=== PATIENT | female | born 1930 | race Caucasian/White ===

== ENCOUNTER 2019-07-18 11:28 | Emergency (ER) | payer MEDICARE ==
[~2019-07-18] VITALS: Ht 165.1 cm; Wt 80.5 kg
[~2019-07-18 11:28] MED LIST: ACET650S13 RC; ASPI-1265 PO; CALC1TAB PO; CLON-528 PO; COU1T PO; ESTR0.3T3 PO; FAMO20TA8 PO; FURO40TA4 PO; GABA100C PO; KEP500T PO; LOPE2TAB23 PO; METO-539 PO; MULT-227 PO; NYST1POW5; PARO10TA85 PO; PRAV80TA3 PO
[2019-07-18] MEDS ORDERED: mag hydrox/Alum hydrox/simeth 30ml oral suspension PO ONE (11:55)
[2019-07-18] MEDS ORDERED: pantoprazole 40 MG vial IV ONE (11:55)
[2019-07-18] MEDS ORDERED: normal saline 1000ml 1,000 ML IV ONE (11:55)
[2019-07-18 12:03] LABS: BASOPHILS % (AUTO) 0.8 % (0-1); EOSINOPHILS % (AUTO) 0.2 % (0-6); HEMATOCRIT 44.2 % (35.0-45.0); HEMOGLOBIN 14.6 g/dl (12.0-16.0); LYMPHOCYTES % (AUTO) 33.8 % (21-51); MEAN CORPUSCULAR HEMOGLOBIN 28.7 PG (27.0-31.0); MEAN CORPUSCULAR HGB CONC 33.1 g/dL (33.0-36.5); MEAN CORPUSCULAR VOLUME 86.7 FL (78-98); MEAN PLATELET VOLUME 9.4 FL (7.4-10.4); MONOCYTES # (AUTO) 0.5 X10'3 (0-0.9); MONOCYTES % (AUTO) 7.7 % (2-12); NEUTROPHILS # (AUTO) 3.4 X10'3 (1.8-7.7); NEUTROPHILS % (AUTO) 57.5 % (42-75); PLATELET COUNT 178 X10'3 (140-440); RED CELL DISTRIBUTION WIDTH 15.1 % (11.5-14.5); WHITE BLOOD COUNT 5.9 X10'3 (4.5-11.0)
[2019-07-18 12:19] LABS: ALANINE AMINOTRANSFERASE 35 U/L (12-78); ALBUMIN 2.8 G/DL (3.4-5.0); ALBUMIN/GLOBULIN RATIO 0.7 (1.1-1.5); ALKALINE PHOSPHATASE 112 IU/L (46-116); ANION GAP 11 (8-16); ASPARTATE AMINO TRANSFERASE 63 U/L (10-37); BILIRUBIN,TOTAL 1.9 MG/DL (0.1-1.0); BLOOD UREA NITROGEN 32 MG/DL (7-18); BUN/CREATININE RATIO 19.6 (6.6-38.0); CALCIUM 9.3 MG/DL (8.5-10.1); CHLORIDE 97 MMOL/L (99-107); CREATININE 1.63 MG/DL (0.40-0.90); GLUCOSE 84 MG/DL (70-104); LIPASE 69 U/L (73-393); MAGNESIUM 2.1 MG/DL (1.5-2.4); SODIUM 133 MMOL/L (135-145); TOTAL CARBON DIOXIDE 24.8 MMOL/L (24-32); TOTAL PROTEIN 6.8 G/DL (6.4-8.2); eGFR 30 ML/MIN
[2019-07-18] MEDS ORDERED: iohexol 350MG/ML 100ml bottle IV ONE (13:27)
[2019-07-18] MEDS ORDERED: PANT-47 PO (15:20)
[2019-07-18] MEDS ORDERED: ONDA4TAB6 PO (15:20)
[2019-07-18 15:58] VITALS: BP 126/92
== END 2019-07-18 16:00 | disposition home or self-care (01) ==
LOC: ER 11:28
DX: R11.2 Nausea with vomiting, unspecified (principal); I38 Endocarditis, valve unspecified; Z86.69 Personal history of other diseases of the nervous system and sense organs; I10 Essential (primary) hypertension; Z86.718 Personal history of other venous thrombosis and embolism; Z91.011 Allergy to milk products; Z88.8 Allergy status to other drugs, medicaments and biological substances; Z88.2 Allergy status to sulfonamides; Z79.82 Long term (current) use of aspirin; Z79.899 Other long term (current) drug therapy
CPT/HCPCS: 36415; 71045; 71275; 74176; 80053; 83690; 83735; 83880; 84484; 85025; 93005; 93306; 96361; 96374; 99285; C9113; J7030; Q9967; 96375